=== PATIENT | female | born 1985 | race Caucasian/White ===

== ENCOUNTER 2023-12-21 20:56 | Emergency (ER) | payer BC ==
[~2023-12-21] VITALS: Ht 157.5 cm; Wt 84.1 kg
[2023-12-21 21:04] VITALS: TEMP 98.1
[2023-12-21] MEDS ORDERED: Ketorolac 30 MG/ML VIAL IV ONE (21:30)
[2023-12-21] MEDS ORDERED: Ondansetron 4 MG/2 ML VIAL IV ONE (21:30)
[2023-12-21] MEDS ORDERED: NS 1,000 ML IV ONE (21:30)
[2023-12-21 22:08] LABS: URINE APPEARANCE CLEAR (CLEAR/HAZY); URINE BLOOD 1+ (NEGATIVE); URINE COLOR YELLOW (YELLOW); URINE GLUCOSE NEGATIVE (NEGATIVE); URINE KETONE NEGATIVE (NEGATIVE); URINE NITRATE NEGATIVE (NEGATIVE); URINE PROTEIN(semi-quant) TRACE (NEGATIVE)
[2023-12-21 22:21] LABS: CALCIUM 9.4 mg/dL (8.4-10.2); CREATININE, serum 1.07 mg/dL (0.57-1.11); POTASSIUM 4.3 mmol/L (3.5-4.5)
[2023-12-21] MEDS ORDERED: Iohexol 300 - 100 ML VIAL IV ONE (22:38)
[2023-12-21] MEDS ORDERED: NS 50 ML IV ONE (22:39)
[2023-12-21] MEDS ORDERED: ULTRAM 50MG TAB50 MG PO (23:10)
[2023-12-21] MEDS ORDERED: ZOFRAN 4MG T4 MG/TAB PO (23:10)
[2023-12-21] MEDS ORDERED: TORADOL 10MG TA10 MG PO (23:10)
[2023-12-21 23:11] LABS: COLLECTION METHOD CLEAN CATCH
[2023-12-21 23:20] VITALS: BP 126/82; PULSE 84
== END 2023-12-21 23:21 | disposition home or self-care (01) ==
LOC: COL.ER 20:56
PROVIDERS: Emergency Medicine
DX: N20.0 Calculus of kidney (principal)
CPT/HCPCS: J1885; J2405; J7030; Q9967